=== PATIENT | male | born 1955 | race Caucasian/White ===

== ENCOUNTER 2017-05-16 03:30 | Emergency (ER) | payer BC ==
[~2017-05-16] VITALS: Ht 172.7 cm; Wt 72.1 kg
[~2017-05-16 03:30] MED LIST: ACET500; ASPI325 PO; CEPH500 PO; Norco 5-325 Ta1 EACH PO; Pseudoephedrine30 MG PO
[2017-10-23] MEDS ORDERED: Pseudoephedrine30 MG PO (12:27)
[2017-10-23] MEDS ORDERED: EXTRA STRENGTH500 MG PO (12:28)
[2017-10-23] MEDS ORDERED: MELATONIN5 M1 PO (12:28)
== END 2017-05-16 04:26 | disposition home or self-care (01) ==
LOC: ER 03:30
DX: R09.89 Other specified symptoms and signs involving the circulatory and respiratory systems (principal); Z88.5 Allergy status to narcotic agent
CPT/HCPCS: 96372; 99283; J1610

== ENCOUNTER 2019-08-05 13:48 | Emergency (ER) | payer BC ==
[~2019-08-05] VITALS: Ht 172.7 cm; Wt 73.0 kg
[~2019-08-05 13:48] MED LIST changes: +EXTRA STRENGTH500 MG PO; +MELATONIN5 M1 PO
[2019-08-05 14:30] LABS: BASOPHILS ABSOLUTE AUTO 0.03 K/mm3 (0.00-0.23); BASOPHILS PERCENT AUTO 0 % (0-2); EOSINOPHILS ABSOLUTE AUTO 0.11 K/mm3 (0.00-0.68); EOSINOPHILS PERCENT AUTO 2 % (0-6); Hematocrit 48.5 % (37.0-53.0); Hemoglobin 15.9 g/dL (13.5-17.5); IMMATURE GRAN ABSOLUTE AUTO 0.02 K/mm3 (0.00-0.10); IMMATURE GRAN PERCENT AUTO 0 % (0-1); LYMPHOCYTES ABSOLUTE AUTO 2.63 K/mm3 (0.84-5.20); LYMPHOCYTES PERCENT AUTO 38 % (21-46); MONOCYTES PERCENT AUTO 12 % (4-13); Mean Corpuscular HGB 29.8 pg (26.0-34.0); Mean Corpuscular HGB Conc 32.8 g/dL (31.5-36.5); Mean Corpuscular Volume 91 fL (80-100); Mean Platelet Volume 9.3 fL (9.1-12.4); NEUTROPHILS ABSOLUTE AUTO 3.37 K/mm3 (1.96-9.15); NEUTROPHILS PERCENT AUTO 48 % (41-73); Platelet Count 208 K/mm3 (150-400); RDW Coefficient Variation 14.1 % (11.7-14.2); RDW Standard Deviation 46.5 fL (35.1-46.3); Red Blood Cell Count 5.34 M/mm3 (4.30-5.90); White Blood Cell Count 6.96 K/mm3 (4.00-11.30)
[2019-08-05] MEDS ORDERED: ELIQUIS5 M3 PO (14:40)
[2019-08-05 14:48] LABS: Source, Urine Clean Catch
[2019-08-05 14:49] LABS: Alanine Aminotransfer (ALT/SGP 43 U/L (12-78); Albumin, Blood 3.7 g/dL (3.4-5.0); Alk Phos 87 U/L (50-136); Anion Gap 9 mmol/L (6-16); Aspartate Aminotrans (AST/SGOT 27 U/L (12-37); Bilirubin, Total 0.5 mg/dL (0.1-1.0); Blood Urea Nitrogen 28 mg/dL (8-24); Bun/Creatinine Ratio 34.3 (12.0-20.0); CO2, Blood 25 mmol/L (21-32); Calcium, Blood 9.4 mg/dL (8.5-10.1); Chloride, Blood 108 mmol/L (98-108); Creatinine, Blood 0.82 mg/dL (0.60-1.20); Globulin, Blood 3.6 g/dL (2.2-4.0); Glomerular Filtration Rate >60 (60-); Glucose, Blood 204 mg/dL (70-99); Potassium, Blood 3.9 mmol/L (3.5-5.5); Sodium, Blood 142 mmol/L (136-145); Total Protein, Blood 7.3 g/dL (6.4-8.2)
[2019-08-05 14:51] LABS: Bilirubin, Urine Neg (Neg); Blood, Urine 5+ (Neg); Glucose Qualitative, Urine 2+ (Neg); Ketones, Urine 1+ (Neg); Leukocyte Esterase, Urine 1+ (Neg); Nitrite, Urine Neg (Neg); Protein, Urine 3+ (Neg); Specific Gravity, Urine 1.025 (1.003-1.022); Urobilinogen, Urine NORM (Normal); pH, Urine 6.5 (5.0-8.0)
[2019-08-05 14:59] LABS: Appearance, Urine Turbid (Clear); Color, Urine Brown (P-Yellow)
[2019-08-05 15:02] LABS: Red Blood Cells, Urine TNTC /hpf (0-2); Squamous Epithelial Cells Rare /hpf (Few); White Blood Cells, Urine 0-2 /hpf (0-5)
[2019-08-05 15:03] LABS: Bacteria Few /hpf; Calcium Oxalate Crystals Few /hpf; Mucus Light (0-Heavy)
[2019-08-05] MEDS ORDERED: CEPH500 PO (15:19)
== END 2019-08-05 16:25 | disposition home or self-care (01) ==
LOC: ER 13:48
PROVIDERS: Nurse Practitioner
DX: N39.0 Urinary tract infection, site not specified (principal); R31.9 Hematuria, unspecified; Z88.5 Allergy status to narcotic agent; Z79.899 Other long term (current) drug therapy; Z79.01 Long term (current) use of anticoagulants
CPT/HCPCS: 36415; 80053; 81001; 85025; 87086; 99283

== ENCOUNTER 2020-08-26 06:44 | Day surgery (SDC) | payer BC ==
[~2020-08-26] VITALS: Ht 172.7 cm; Wt 75.7 kg
[~2020-08-26 06:44] MED LIST changes: +ELIQUIS5 M3 PO; +IBUP800 PO; +INDO50 PO; +MELA3 PO; -MELATONIN5 M1 PO; +META800 PO; +METF500 PO; +METFORMIN ER G500 MG PO; +SOLTICE QUICK-R85 GM
--- NOTE | 2020-08-26 08:45 | NUR ---
PT PLEASANT, A BIT NERVOUS. Ambulatory in Day Surgery. History, Chart, Medications and Allergies reviewed before start of procedure. Lungs clear T/O to Auscultation. Patient confirms NPO status and agrees with scheduled surgery. Pre-Op teaching done. Pt verbalizes understanding. Patient States Post-Procedure ride home has been arranged.
--- NOTE | 2020-08-26 14:01 | NUR ---
PT IS DROWSY BUT ROUSES EASILY TO VERBAIL STIMULI. STERI-STRIPS X 3 LOCATIONS DRY AND INTACT. PT REPORTS DIDN'T SLEEP LAST NIGHT DUE TO BEING ANXIOUS ABOUT HIS SURGERY. PT ABLD TO TAKE WATER AND PUDDING WITHOUT DIFFICULTY. PO PAIN MEDICATIONS PROVIDED.
--- NOTE | 2020-08-26 16:42 | NUR ---
Discharge instructions reviewed with patient. Patient verbalizes understanding. Copy given to patient to take home. Patient States Post-Procedure ride home has been arranged. Discharged via wheelchair to private car for ride home.
== END 2020-08-26 15:56 | disposition home or self-care (01) ==
LOC: ORSCMMR 06:44 → ORD 10:45 → ORSCMMR 10:45
PROVIDERS: Surgery
PROC: 8E0W4CZ Robotic Assisted Procedure of Trunk Region, Percutaneous Endoscopic Approach (ICD-10-PCS; principal; 2020-08-26 10:45)
PROC: 0YUA4JZ Supplement Bilateral Inguinal Region with Synthetic Substitute, Percutaneous Endoscopic Approach (ICD-10-PCS; principal; 2020-08-26 10:45)
DX: K40.20 Bilateral inguinal hernia, without obstruction or gangrene, not specified as recurrent (principal); E11.9 Type 2 diabetes mellitus without complications; Z79.899 Other long term (current) drug therapy
CPT/HCPCS: 49650; S2900; 82947; A9270; C1781; J0690; J1100; J1885; J2405; J2704; J3010; J7120

== ENCOUNTER 2021-10-03 07:56 | Day surgery (SDC) | payer BC ==
[~2021-10-03] VITALS: Ht 172.7 cm; Wt 70.9 kg
== END 2021-10-03 10:07 | disposition home or self-care (01) ==
LOC: ORSCSDS 07:56
PROVIDERS: Surgery
PROC: 0DBM8ZX Excision of Descending Colon, Via Natural or Artificial Opening Endoscopic, Diagnostic (ICD-10-PCS; principal; 2021-10-03 09:15)
PROC: 0DBL8ZX Excision of Transverse Colon, Via Natural or Artificial Opening Endoscopic, Diagnostic (ICD-10-PCS; principal; 2021-10-03 09:15)
DX: Z12.11 Encounter for screening for malignant neoplasm of colon (principal); Z86.010 Personal history of colon polyps; D12.3 Benign neoplasm of transverse colon; D12.4 Benign neoplasm of descending colon; E11.9 Type 2 diabetes mellitus without complications; Z79.84 Long term (current) use of oral hypoglycemic drugs; Z79.899 Other long term (current) drug therapy
CPT/HCPCS: 82947; 88305; J2704; J7120

== ENCOUNTER → 2025-02-01 | Outpatient (CLI) | payer BC ==
[~2025-02-01] MED LIST changes: +MUPIROCIN1 G1 TOP
[2025-02-01 21:13] LABS: Creatinine, Urine Random 246.0 mg/dL (27.00-270.00); Microalb/Creat Ratio UR, Rand 6.951 mg/g (0.000-30.000); Microalbumin, Random Urine 17.1 mg/L (0.000-20.000)
== END ==
LOC: LAB SHORT 15:22 → LAB 15:22
PROVIDERS: Internal Medicine
DX: E11.8 Type 2 diabetes mellitus with unspecified complications (principal); Z79.899 Other long term (current) drug therapy; E78.5 Hyperlipidemia, unspecified
CPT/HCPCS: 82043; 82570